=== PATIENT | male | born 1975 | race African-American/Black ===

== ENCOUNTER 2024-06-28 06:47 | Emergency (ER) | payer OTHER ==
[~2024-06-28] VITALS: Ht 175.3 cm; Wt 74.0 kg
[2024-06-28] VITALS (13 sets, daily range): BP systolic 101–118; BP diastolic 63–73
[2024-06-28 07:50] LABS: BASO% 2.9 % (0-3); EOS% 6.7 % (0-8); HEMOGLOBIN 13.5 g/dl (14.0-18.0); LYMPH% 31.7 % (15-41); MEAN CELL VOLUME 88.9 fL CALC (80.0-100.0); MEAN CORPUSCULAR HGB 29.3 pG CALC (26.0-32.0); MEAN CORPUSCULAR HGB CONC 32.9 g/dL CAL (32.0-36.0); MONO% 12.9 % (2-13); NEUT# 1.1 thou/uL (1.82-7.42); NEUT% 45.8 % (42-76); RED BLOOD COUNT 4.61 mill/uL (4.70-6.10); RED CELL DISTRI WIDTH 12.8 % (11.5-15.5)
[2024-06-28 07:58] LABS: ALBUMIN 4.6 g/dL (3.2-5.0); BILIRUBIN, TOTAL 0.8 mg/dL (0.2-1.3); CREATININE 1.1 mg/dL (0.7-1.3); POTASSIUM 4.2 mmol/l (3.5-5.1); TOTAL PROTEIN 7.7 g/dL (6.3-8.2)
[2024-06-28] MEDS ORDERED: KEPPRA500 M2 PO (09:46)
== END 2024-06-28 10:13 | DRG 101 ==
LOC: ED 06:47
PROVIDERS: Emergency Medicine
DX: G40.909 Epilepsy, unspecified, not intractable, without status epilepticus (principal); T42.76XA Underdosing of unspecified antiepileptic and sedative-hypnotic drugs, initial encounter; Z91.148 Patient's other noncompliance with medication regimen for other reason
CPT/HCPCS: J1953

== ENCOUNTER 2024-09-14 22:57 | Emergency (ER) | payer OTHER ==
[~2024-09-14] VITALS: Ht 175.3 cm; Wt 79.0 kg
[~2024-09-14 22:57] MED LIST: KEPPRA500 M2 PO
[2024-09-14] MEDS ORDERED: LEVETIRACETAM500 M1 PO (23:07)
[2024-09-14] MEDS ORDERED: TERAZOSIN1 MG PO (23:08)
[2024-09-14 23:21] VITALS: BP 136/76
[2024-09-14 23:25] LABS: BASO% 1.3 % (0-3); EOS% 3.7 % (0-8); HEMATOCRIT 37.6 % (39.0-50.0); HEMOGLOBIN 12.1 g/dl (14.0-18.0); LYMPH% 19.4 % (15-41); MEAN CELL VOLUME 88.7 fL CALC (80.0-100.0); MEAN CORPUSCULAR HGB 28.5 pG CALC (26.0-32.0); MEAN CORPUSCULAR HGB CONC 32.2 g/dL CAL (32.0-36.0); MONO% 10.3 % (2-13); NEUT# 3.57 thou/uL (1.82-7.42); NEUT% 65.3 % (42-76); RED BLOOD COUNT 4.24 mill/uL (4.70-6.10); RED CELL DISTRI WIDTH 12.4 % (11.5-15.5)
[2024-09-14 23:43] LABS: ALBUMIN 4.3 g/dL (3.2-5.0); ALKALINE PHOSPHATASE 65 u/l (38-126); ANION GAP 14 (6-22 (CALC)); BUN 15 mg/dL (9-20); BUN/CREATININE RATIO 15 (12-20 (CALC)); CARBON DIOXIDE 22 mmol/l (22-30); CHLORIDE 105 mmol/l (95-108); CPK 303 u/l (55-170); ESTIMATED GFR 93 ML/MIN (>=90 (CALC)); LIPASE 23 u/l (23-300); MAGNESIUM 2.3 mg/dL (1.6-2.3); POTASSIUM 3.9 mmol/l (3.5-5.1); SGOT/AST 39 u/l (17-59); SODIUM 138 mmol/l (137-146); TOTAL PROTEIN 7.3 g/dL (6.3-8.2)
[2024-09-14 23:46] VITALS: BP 147/78
[2024-09-14 23:53] LABS: BILIRUBIN, TOTAL 0.4 mg/dL (0.2-1.3)
[2024-09-14] MEDS ORDERED: SODIUM CHLORIDE 0.9% 1,000 ML IV ONE ×2 (23:55)
[2024-09-15] VITALS (21 sets, daily range): BP systolic 129–155; BP diastolic 68–87
[2024-09-15 00:01] LABS: URINE BILIRUBIN - DIPSTICK Negative (NEGATIVE); URINE BLOOD DIPSTICK Trace-lysed (NEGATIVE); URINE COLOR Yellow; URINE GLUCOSE - DIPSTICK Negative (NEGATIVE); URINE KETONE Negative (NEGATIVE); URINE LEUK ESTERASE Negative (NEGATIVE); URINE NITRITE - DIPSTICK Negative (Negative); URINE PROTEIN - DIPSTICK Negative (NEG-TRACE); URINE SPECIFIC GRAVITY 1.015; URINE UROBILINOGEN - DIPSTICK 0.2 E.U./dL (0.2)
[2024-09-15 00:13] LABS: TSH, 3RD GENERATION 3.93 uIU/mL (0.47 - 4.68)
[2024-09-16] MEDS ORDERED: KEPPRA750 M2 PO (03:51)
== END 2024-09-15 05:04 | DRG 93 ==
LOC: ED 22:57
PROVIDERS: Internal Medicine
DX: R25.8 Other abnormal involuntary movements (principal); T42.4X5A Adverse effect of benzodiazepines, initial encounter
CPT/HCPCS: J0696; J1953

== ENCOUNTER 2024-09-16 02:34 | Emergency (ER) | payer OTHER ==
[2024-09-16] VITALS (7 sets, daily range): BP systolic 107–128; BP diastolic 64–77
[~2024-09-16] VITALS: Ht 175.3 cm; Wt 77.0 kg
[~2024-09-16 02:34] MED LIST changes: +LEVETIRACETAM500 M1 PO; +TERAZOSIN1 MG PO
[2024-09-16 03:23] LABS: BASO% 0.9 % (0-3); EOS% 4.5 % (0-8); HEMATOCRIT 36.8 % (39.0-50.0); HEMOGLOBIN 11.8 g/dl (14.0-18.0); IMMATURE GRANULOCYTES 0.6 % (0.0-5.0); LYMPH% 19.2 % (15-41); MEAN CELL VOLUME 89.1 fL CALC (80.0-100.0); MEAN CORPUSCULAR HGB 28.6 pG CALC (26.0-32.0); MEAN CORPUSCULAR HGB CONC 32.1 g/dL CAL (32.0-36.0); NEUT# 2.96 thou/uL (1.82-7.42); NEUT% 63.8 % (42-76); RED BLOOD COUNT 4.13 mill/uL (4.70-6.10); RED CELL DISTRI WIDTH 12.6 % (11.5-15.5)
[2024-09-16 03:29] LABS: ALBUMIN 3.9 g/dL (3.2-5.0); TOTAL PROTEIN 6.8 g/dL (6.3-8.2)
[2024-09-16 03:36] LABS: BILIRUBIN, TOTAL 0.6 mg/dL (0.2-1.3)
[2024-09-16] MEDS ORDERED: KEPPRA750 M2 PO (03:51)
== END 2024-09-16 04:00 | DRG 101 ==
LOC: ED 02:34
PROVIDERS: Family Medicine
DX: R56.9 Unspecified convulsions (principal); F32.A Depression, unspecified; Z87.820 Personal history of traumatic brain injury
CPT/HCPCS: J1953

== ENCOUNTER 2024-09-16 10:48 | Emergency (ER) | payer OTHER ==
[2024-09-16] VITALS (12 sets, daily range): BP systolic 125–149; BP diastolic 85–105
[~2024-09-16] VITALS: Ht 175.3 cm; Wt 74.0 kg
[~2024-09-16 10:48] MED LIST changes: +KEPPRA750 M2 PO
[2024-09-16] MEDS ORDERED: PROPOFOL 100 ML IV ONE (11:00)
[2024-09-16] MEDS ORDERED: SODIUM CHLORIDE 0.9% 1,000 ML IV ONE (11:00)
[2024-09-16 11:36] LABS: BASO% 2.2 % (0-3); HEMATOCRIT 40.3 % (39.0-50.0); HEMOGLOBIN 12.8 g/dl (14.0-18.0); LYMPH% 25.8 % (15-41); MEAN CELL VOLUME 89.2 fL CALC (80.0-100.0); MEAN CORPUSCULAR HGB 28.3 pG CALC (26.0-32.0); MEAN CORPUSCULAR HGB CONC 31.8 g/dL CAL (32.0-36.0); MONO% 10.7 % (2-13); NEUT# 1.2 thou/uL (1.82-7.42); NEUT% 53.3 % (42-76); RED BLOOD COUNT 4.52 mill/uL (4.70-6.10); RED CELL DISTRI WIDTH 12.4 % (11.5-15.5)
[2024-09-16 12:05] LABS: ALBUMIN 4.1 g/dL (3.2-5.0); ALKALINE PHOSPHATASE 72 u/l (38-126); ANION GAP 13 (6-22 (CALC)); BUN 13 mg/dL (9-20); BUN/CREATININE RATIO 14 (12-20 (CALC)); CARBON DIOXIDE 25 mmol/l (22-30); CHLORIDE 104 mmol/l (95-108); CREATININE 0.9 mg/dL (0.7-1.3); ESTIMATED GFR 105 ML/MIN (>=90 (CALC)); ETHYL ALCOHOL 0 mg/dl (0-30); LIPASE 22 u/l (23-300); MAGNESIUM 2.2 mg/dL (1.6-2.3); POTASSIUM 3.6 mmol/l (3.5-5.1); SODIUM 138 mmol/l (137-146); TOTAL PROTEIN 7.1 g/dL (6.3-8.2)
[2024-09-16 12:06] LABS: BILIRUBIN, TOTAL 0.9 mg/dL (0.2-1.3); SGOT/AST 131 u/l (17-59)
[2024-09-16 12:21] LABS: URINE BILIRUBIN - DIPSTICK Negative (NEGATIVE); URINE BLOOD DIPSTICK Trace-lysed (NEGATIVE); URINE GLUCOSE - DIPSTICK Negative (NEGATIVE); URINE KETONE Negative (NEGATIVE); URINE LEUK ESTERASE Negative (NEGATIVE); URINE PROTEIN - DIPSTICK 100 mg/dL (NEG-TRACE); URINE UROBILINOGEN - DIPSTICK 0.2 E.U./dL (0.2)
[2024-09-16 12:24] LABS: URINE COLOR Yellow
[2024-09-16 12:33] LABS: URINE NITRITE - DIPSTICK Negative (Negative)
[2024-09-16 12:34] LABS: TSH, 3RD GENERATION 2.07 uIU/mL (0.47 - 4.68)
[2024-09-16 12:35] LABS: URINE HYALINE CAST FEW lpf (NONE-RARE); URINE RBC 0-2 RBC/hpf (0-5)
[2024-09-16 12:39] LABS: PROTHROMBIN TIME 10.9 SECONDS (9.0-12.5)
[2024-09-16] MEDS ORDERED: Pantoprazole Sodium 40 MG VIAL (Protonix) IV ONE (13:00)
== END 2024-09-16 14:30 | DRG 101 ==
LOC: ED 10:48
PROVIDERS: Family Medicine
PROC: 0T9B70Z Drainage of Bladder with Drainage Device, Via Natural or Artificial Opening (ICD-10-PCS; principal; 2024-09-16)
PROC: 05HM33Z Insertion of Infusion Device into Right Internal Jugular Vein, Percutaneous Approach (ICD-10-PCS; 2024-09-16)
DX: G40.901 Epilepsy, unspecified, not intractable, with status epilepticus (principal); F32.A Depression, unspecified; Z87.820 Personal history of traumatic brain injury; Z20.822 Contact with and (suspected) exposure to COVID-19
CPT/HCPCS: J1953; J2470; J2704